=== PATIENT | female | born 1990 | race Caucasian/White ===

== ENCOUNTER 2020-03-17 06:45 | Inpatient (IN) | payer MEDICAID ==
[2020-03-17] MEDS ORDERED: Sodium Chloride 0.9% 10 ML Syringe FLUSH PRN ×2 (06:55→07:00)
[2020-03-17] MEDS ORDERED: Ondansetron 4 MG/2 ML SDV IV PRN (07:00)
[2020-03-17] MEDS ORDERED: Acetaminophen 325 MG Tab PO PRN (07:00)
[2020-03-17] MEDS ORDERED: diphenhydrAMINE 50 MG/ML SDV IVPUSH PRN (07:16)
[2020-03-17] MEDS ORDERED: Misoprostol 50 MCG (1/2 of 100 MCG) Tab VAG ONE (07:30)
[2020-03-17] MEDS ORDERED: cefTRIAXone 2 GM in Sodium Chloride 0.9% 50 ML IV SCH (08:00)
--- NOTE | 2020-03-17 08:21 | PCM.LDHP ---
L&D History of Present Illness - General Date of Service: 03/17/20 Admit Problem/Dx: Patient Status Order with Admit Dx/Problem 03/17/20 07:00 Patient Status [ADT] Routine Admission Diagnosis/Problem Admission Diagnosis/Problem Source of Information: Patient History Limitations: Reports: No Limitations - Related Data Allergies/Adverse Reactions: Allergies Allergy/AdvReac Type Severity Reaction Status Date / Time amoxicillin [Amoxicillin] Allergy Hives Verified 03/17/20 07:48 Penicillins Allergy Hives Verified 03/17/20 07:48 Sulfa (Sulfonamide Allergy Hives Verified 03/17/20 07:48 Antibiotics) Home Medications: Home Meds Calcipotriene [Dovonex 0.005% Crm] 1 applic TP BID PRN 11/27/13 [History] Clobetasol Propionate [Clobex] 1 applic TOP ASDIRECTED PRN 11/27/13 [History] Levothyroxine Sodium 150 mcg PO DAILY 06/27/16 [History] #103/Iron Fumarate/Fa [ ] 1 each PO DAILY 03/17/20 [ History] Past Medical History - Past Health History Medical/Surgical History: Denies 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: Musculoskeletal History: Reports: Fracture Endocrine/Metabolic History: Reports: Hypothyroidism Dermatologic History: Reports: Psoriasis - Infectious Disease History Infectious Disease History: Reports: Chicken Pox, MRSA - Past Surgical History Endocrine Surgical History: Reports: Thyroidectomy Social & Family History - Family History Family Medical History: Noncontributory - Tobacco Use Smoking Status *Q: Current Every Day Smoker Years of Tobacco use: 13 Packs/Tins Daily: 0.5 Used Tobacco, but Quit: No Second Hand Smoke Exposure: No - Caffeine Use Caffeine Use: Reports: Coffee - Recreational Drug Use Recreational Drug Use: No - Living Situation & Occupation Living situation: Reports: H&P Review of Systems - Review of Systems: Review Of Systems: See Below General: Reports: No Symptoms HEENT: Reports: No Symptoms Pulmonary: Reports: No Symptoms Cardiovascular: Reports: No Symptoms Gastrointestinal: Reports: No Symptoms Genitourinary: Reports: No Symptoms Musculoskeletal: Reports: No Symptoms Skin: Reports: No Symptoms Psychiatric: Reports: No Symptoms Neurological: Reports: No Symptoms Hematologic/Lymphatic: Reports: No Symptoms Immunologic: Reports: No Symptoms L&D Exam - Exam Exam: See Below - Vital Signs Weight: 75.296 kg - OB Specific Contraction Intensity: Mild Movement: Active Heart Tones: Present Heart Rate (FHR) Variability: Moderate (6-25 bmp) Presentation: Left Occiput Posterior (LOP) - Eng Score Eng Score Cervix Position: Posterior Eng Score Consistency: Soft Eng Score Effacement: 51-70% Eng Score Dilation: 1-2 cm Eng Score 's Station: -2 Eng Score Total: 6 - Exam General: Alert, Oriented, Cooperative HEENT: PERRLA, Conjunctiva Clear, EACs Clear, EOMI, Hearing Intact, Mucosa Moist & [place], Nares Patent, Normal Nasal Septum, Posterior Pharynx Clear, TMs Clear Neck: Supple, Trachea Midline Lungs: Clear to Auscultation, Normal Respiratory Effort Cardiovascular: Regular Rate, Regular Rhythm GI/Abdominal Exam: Normal Bowel Sounds, Soft, Non-Tender, No Organomegaly, No Distention, No Abnormal Bruit, No Mass, Pelvis Stable Rectal Exam: Normal Exam, Normal Rectal Tone Genitourinary: Normal external exam, Normal bimanual exam, Normal speculum exam Back Exam: Normal Inspection, Full Range of Motion Extremities: Normal Inspection, Normal Range of Motion, Non-Tender, No Pedal Edema, Normal Capillary Refill Skin: Warm, Dry, Intact Neurological: Cranial Nerves Intact, Reflexes Equal Bilateral Psychiatric: Alert, Normal Affect, Normal Mood - Patient Data Lab Results Last 24 hrs: Laboratory Results - last 24 hr 03/17/20 Range/Units 06:53 WBC 14.6 H (4.5-11.0) K/uL RBC 4.43 (3.30-5.50) M/uL Hgb 13.3 (12.0-15.0) g/dL Hct 40.6 (36.0-48.0) % MCV 92 (80-98) fL MCH 30 (27-31) pg MCHC 33 (32-36) % Plt Count 310 (150-400) K/uL Neut % (Auto) 66 (36-66) % Lymph % (Auto) 22 L (24-44) % [place] % (Auto) 10 H (2-6) % Eos % (Auto) 2 (2-4) % Baso % (Auto) 0 (0-1) % Result Diagrams: 03/17/20 06:53 - Problem List (1) SNOMED Code(s): 54056172 ICD Code: Z34.90 - ENCNTR FOR SUPRVSN OF NORMAL , UNSP, UNSP TRIMESTER Status: Acute Current Visit: Yes Qualifiers: Weeks of gestation: 39 weeks Qualified Code(s): Z3A.39 - 39 weeks gestation of (2) Nicotine dependence with current use SNOMED Code(s): 342535894 ICD Code: F17.200 - NICOTINE DEPENDENCE, UNSPECIFIED, UNCOMPLICATED Status : Acute Current Visit: Yes (3) Encounter for induction of labor SNOMED Code(s): 069732503 ICD Code: Z34.90 - ENCNTR FOR SUPRVSN OF NORMAL , UNSP, UNSP TRIMESTER Status: Acute Current Visit: Yes (4) Positive GBS test SNOMED Code(s): 003530074, 286694012 ICD Code: B95.1 - STREPTOCOCCUS, GROUP B, CAUSING DISEASES CLASSD ELSWHR Status: Acute Priority: High Current Visit: Yes (5) History of delivery, currently in third trimester SNOMED Code(s): 64313976, 48848918 ICD Code: O09.893 - SUPERVISION OF OTHER HIGH RISK PREGNANCIES, THIRD TRIMESTER Status: Acute Priority: High Current Visit: Yes Problem List Initiated/Reviewed/Updated: Yes Orders Last 24hrs: Active Orders 24 hr Category Date Time Status Patient Status [ADT] Routine ADT 03/17/20 07:00 Active Ambulate [RC] PER UNIT ROUTINE Care 03/17/20 07:00 Active Communication Order [RC] ASDIRECTED Care 03/17/20 07:00 Active Communication Order [RC] Per Unit Routine Care 03/17/20 07:00 Active Communication Order [RC] Per Unit Routine Care 03/17/20 07:00 Active Communication Order [RC] Per Unit Routine Care 03/17/20 07:00 Active Communication Order [RC] Per Unit Routine Care 03/17/20 07:00 Active Dietary Supplements [RC] BIDMEALS Care 03/17/20 07:06 Active Heart Tones [RC] PER UNIT ROUTINE Care 03/17/20 07:00 Active Non Stress Test [RC] Click to Edit Care 03/17/20 07:00 Active May Shower [RC] ASDIRECTED Care 03/17/20 07:00 Active Nitrous Oxide Delivery [RC] ASDIRECTED Care 03/17/20 07:00 Active Notify Provider Vital Signs [RC] PRN Care 03/17/20 07:00 Active Notify Provider [RC] PRN Care 03/17/20 07:00 Active Oxygen Therapy [RC] ASDIRECTED Care 03/17/20 07:00 Active Peripheral IV Care [RC] . DIRECTED Care 03/17/20 06:55 Active Pulse Oximetry [RC] ASDIRECTED Care 03/17/20 07:00 Active Up ad Chandrika [RC] ASDIRECTED Care 03/17/20 07:00 Active VTE/DVT Education [RC] Click to Edit Care 03/17/20 07:04 Active Verify Patient Consent Obtain [RC] ASDIRECTED Care 03/17/20 07:00 Active Vital Signs [RC] PER UNIT ROUTINE Care 03/17/20 07:00 Active Vital Signs [RC] PER UNIT ROUTINE Care 03/17/20 07:00 Active Regular Diet [DIET] Diet 03/17/20 Breakfast Active BPP wo NST [US] Routine Exams 03/17/20 07:00 Ordered DRUG SCREEN, URINE [URCHEM] Routine Lab 03/17/20 06:53 Ordered UA W/MICROSCOPIC [URIN] Routine Lab 03/17/20 06:53 Ordered Acetaminophen [Tylenol] Med 03/17/20 07:00 Active 650 mg PO Q4H PRN Ondansetron [Zofran] Med 03/17/20 07:00 Active 4 mg IV Q4H PRN Sodium Chloride 0.9% [Saline Flush] Med 03/17/20 06:55 Active 10 ml FLUSH ASDIRECTED PRN Sodium Chloride 0.9% [Saline Flush] Med 03/17/20 07:00 Active 10 ml FLUSH ASDIRECTED PRN cefTRIAXone [Rocephin] 2 gm Med 03/17/20 08:00 Active Sodium Chloride 0.9% [Normal Saline] 50 ml IV Q24H diphenhydrAMINE [Benadryl] Med 03/17/20 07:16 Active 50 mg IVPUSH Q4H PRN DVT/VTE Prophylaxis Reflex [OM.PC] Routine Oth 03/17/20 07:00 Ordered Medication Discontinuation Instructions [OM.PC] Routine Oth 03/17/20 07:00 Ordered Peripheral IV Insertion Adult [OM.PC] Routine Oth 03/17/20 06:55 Ordered Saline Lock Insert [OM.PC] Routine Oth 03/17/20 07:00 Ordered Resuscitation Status Routine Resus Stat 03/17/20 07:00 Ordered Medication Orders Acetaminophen (Tylenol) 650 mg PO Q4H PRN PRN Reason: Pain (Mild 1-3) and fever Diphenhydramine HCl (Benadryl) 50 mg IVPUSH Q4H PRN PRN Reason: Hives Ceftriaxone Sodium 2 gm/ (Sodium Chloride) 50 mls @ 100 mls/hr IV Q24H CORNELIA Last Admin: 03/17/20 08:04 Dose: 100 mls/hr Ondansetron HCl (Zofran) 4 mg IV Q4H PRN PRN Reason: Nausea/Vomiting Sodium Chloride (Saline Flush) 10 ml FLUSH ASDIRECTED PRN PRN Reason: Keep Vein Open Sodium Chloride (Saline Flush) 10 ml FLUSH ASDIRECTED PRN PRN Reason: Keep Vein Open Assessment/Plan Comment:: 03/17/2020 29 yo is here at 39 3/7 gestational weeks for a medical induction of labor She has a history of a at 20 gestational weeks twins whom due to prematurity, then has a GBS positive case that has minimal sensitivity to antibiotics, she is also a cigarette smoker regularly. Decision was made with patient to induce labor after 39 weeks. SVE-1/60/-2 FHTs category one BPP 8/8 Labs-O positive, Hep B neg, Hep C neg, HIV neg, RPR nonreactive, GBS positive- see report, Hgb-13.3 Cytotec placed vaginally Plan- Monitor for active labor Monitor FHTs Patient may be up ad chandrika Patient may bathe or shower Patient can eat regular diet Patient can have pain management per patient request Rocephin for GBS status Plan and anticipate a vaginal delivery
--- NOTE | 2020-03-17 12:30 | PCM.PNLD ---
Labor Progress Note - VS & Meds Vital Signs: Last Vital Signs Temp 36.6 C 03/17/20 11:00 Pulse 79 03/17/20 09:10 Resp 18 03/17/20 11:00 BP 118/85 03/17/20 11:00 Pulse Ox 97 03/17/20 09:10 Active Medications: Current Medications Acetaminophen (Tylenol) 650 mg PO Q4H PRN PRN Reason: Pain (Mild 1-3) and fever Diphenhydramine HCl (Benadryl) 50 mg IVPUSH Q4H PRN PRN Reason: Hives Ceftriaxone Sodium 2 gm/ (Sodium Chloride) 50 mls @ 100 mls/hr IV Q24H CORNELIA Last Admin: 03/17/20 08:04 Dose: 100 mls/hr Oxytocin/Sodium Chloride (Pitocin In Ns 20 Units/1,000 Ml) 20 unit in 1,000 mls @ 6 mls/hr IV TITRATE CORNELIA; Protocol Ondansetron HCl (Zofran) 4 mg IV Q4H PRN PRN Reason: Nausea/Vomiting Sodium Chloride (Saline Flush) 10 ml FLUSH ASDIRECTED PRN PRN Reason: Keep Vein Open Sodium Chloride (Saline Flush) 10 ml FLUSH ASDIRECTED PRN PRN Reason: Keep Vein Open Discontinued Medications Misoprostol (Cytotec) 50 mcg VAG ONETIME ONE Stop: 03/17/20 07:31 Last Admin: 03/17/20 08:08 Dose: 50 mcg - Uterine Contractions Uterine Monitoring Mode: External [place] Contraction Frequency (min): irreg Contraction Duration (sec): 60-80 Contraction Intensity: Mild to Moderate Uterine Resting Tone: Soft - Monitoring Monitor Mode: External Ultrasound Heart Rate (FHR) Variability: Moderate (6-25 bmp) - Vaginal Exam Dilation (cm): 1 Effacement (Percent): 60-70 Cervical Position: Midposition Sterile Vaginal Exam Performed By: Kristine Oropeza - Labor Progress (Free Text) Labor Progress: 03/17/2020 Patient occasionally having variable with one late deceleration, SVE only slight change, FHTs good variability inbetween Did discuss what a late deceleration is with patient Will continue to monitor closely Plan0 Start Pitocin per protocol Give IV bolus of fluids Monitor FHTs closely Monitor labor
[2020-03-17] MEDS ORDERED: Sodium Chloride 0.9% 1,000 ML IV ONE (12:45)
--- NOTE | 2020-03-17 19:17 | PCM.PNLD ---
Labor Progress Note - VS & Meds Vital Signs: Last Vital Signs Temp 36.4 C 03/17/20 16:00 Pulse 70 03/17/20 16:00 Resp 20 03/17/20 16:00 BP 118/82 03/17/20 16:00 Pulse Ox 96 03/17/20 16:00 Active Medications: Current Medications Acetaminophen (Tylenol) 650 mg PO Q4H PRN PRN Reason: Pain (Mild 1-3) and fever Diphenhydramine HCl (Benadryl) 50 mg IVPUSH Q4H PRN PRN Reason: Hives Ceftriaxone Sodium 2 gm/ (Sodium Chloride) 50 mls @ 100 mls/hr IV Q24H CORNELIA Last Admin: 03/17/20 08:04 Dose: 100 mls/hr Oxytocin/Sodium Chloride (Pitocin In Ns 20 Units/1,000 Ml) 20 unit in 1,000 mls @ 6 mls/hr IV TITRATE CORNELIA; Protocol Last Titration: 03/17/20 16:21 Dose: 18 mls/hr Ondansetron HCl (Zofran) 4 mg IV Q4H PRN PRN Reason: Nausea/Vomiting Sodium Chloride (Saline Flush) 10 ml FLUSH ASDIRECTED PRN PRN Reason: Keep Vein Open Sodium Chloride (Saline Flush) 10 ml FLUSH ASDIRECTED PRN PRN Reason: Keep Vein Open Discontinued Medications Sodium Chloride (Normal Saline) 1,000 mls @ 999 mls/hr IV .BOLUS ONE Stop: 03/17/20 13:45 Last Admin: 03/17/20 13:46 Dose: 999 mls/hr Misoprostol (Cytotec) 50 mcg VAG ONETIME ONE Stop: 03/17/20 07:31 Last Admin: 03/17/20 08:08 Dose: 50 mcg - Uterine Contractions Uterine Monitoring Mode: External [place] Contraction Frequency (min): 1.5-2.5 Contraction Duration (sec): 60-90 Contraction Intensity: Moderate to Strong Uterine Resting Tone: Soft - Monitoring Monitor Mode: External Ultrasound Heart Rate (FHR) Variability: Moderate (6-25 bmp) - Vaginal Exam Dilation (cm): 5-6 Effacement (Percent): 85 Station: -1 Cervical Position: Midposition Sterile Vaginal Exam Performed By: Kristine Oropeza - Labor Progress (Free Text) Labor Progress: 03/17/2020 Patient was progressing but slowly, decision made to AROM, AROM completed clear fluid Pitocin remains on and contractions are regular No more late decelerations noted Patient using nitrous for pain control Significant other supportive at bedside Plan- Continue to monitor labor Continue to monitor FHTs Continue pitocin per protocol Continue nitrous as needed for pain control Patient can be up ad nicole Patient may get in tub Plan and anticipate a vaginal delivery
[2020-03-17] MEDS ORDERED: Calcium Carbonate 500 MG Tab.Chew PO PRN (19:22)
[2020-03-17] MEDS ORDERED: Lidocaine 1% 50 ML MDV ONE (19:45)
[2020-03-17] MEDS ORDERED: Lidocaine 1% 50 ML MDV INJECT ONE (19:48)
[2020-03-17] MEDS ORDERED: Benzocaine 20% Top Spray 56 GM Bottle TOP ONE (20:20)
[2020-03-17] MEDS ORDERED: Witch Hazel Medicated Pads 100/Jar TOP ONE (20:20)
[2020-03-17] MEDS ORDERED: Acetaminophen 325 MG Tab, 50 Tab Bulk Bottle PO PRN (20:20)
[2020-03-17] MEDS ORDERED: Lanolin 100% Cream 40 GM Tube TOP ONE (20:20)
[2020-03-17] MEDS ORDERED: Ibuprofen 200 MG Tab, 24 Tab Bulk Bottle PO PRN (20:20)
[2020-03-17] MEDS ORDERED: Docusate Sodium 100 MG Cap PO PRN (20:20)
--- NOTE | 2020-03-17 20:41 | PCM.DEL ---
L & D Note - General Info Date of Service: 03/17/20 - Delivery Note Labor: Augmented by ARM, Augmented by Oxytocin Cervical Ripening Method: Misoprostil Delivery Outcome: Livebirth Delivery Method: Spontaneous Vaginal Delivery-Single Infant Delivery Mode: Spontaneous Presentation: Left Occiput Anterior (JAVED) Nuchal Cord: None Anesthesia Type: Nitrous Oxide Episiotomy Type: None Laceration: None Placenta: Intact, Spontaneous Cord: 3 Vessels Estimated Blood Loss: 250 Resuscitation Needed: No : Stimulated, Warmed Score 1 min: 8 Score 5 min: 9 Second Stage Interventions: Reports: Second Nurse Assessed Progress of Descent, Second Nurse Reviewed Contraction Pattern, Second Nurse Reviewed Heart Tones, Encouragement Given, Pushing Effectively, Pushing, McRobert's Position Delivery Comments (Free Text/Narrative):: 03/17/2020 29 yo delivered a viable female at 1957 on 03/17/2020 at 39 3/7 gestational weeks over an intact perineum. Infant was delivered and placed on prewarmed blanket on mothers abdomen. Infant was dried and stimulated and began to pink in color. Delayed cord clamping was done for approximately 90 seconds and then cord was double clamped and cut by father of . APGARS-8/ 9, weight-6lbs 3oz, length-19 inches, Placenta then came wilson and intact, cord three vessels, EBL-250ml. No lacerations noted of vagina, perineum, rectum , or cervix. now wrapped in blanket and stable in mothers arms. Stages of labor- [id number] - General Info Date of Service: 03/17/20 Functional Status: Reports: Pain Controlled - Review of Systems General: Reports: No Symptoms HEENT: Reports: No Symptoms Pulmonary: Reports: No Symptoms Cardiovascular: Reports: No Symptoms Gastrointestinal: Reports: No Symptoms Genitourinary: Reports: No Symptoms Musculoskeletal: Reports: No Symptoms Skin: Reports: No Symptoms Neurological: Reports: No Symptoms Psychiatric: Reports: No Symptoms - Patient Data Vitals - Most Recent: Last Vital Signs Temp 36.4 C 03/17/20 16:00 Pulse 70 03/17/20 16:00 Resp 20 03/17/20 16:00 BP 118/82 03/17/20 16:00 Pulse Ox 96 03/17/20 16:00 Weight - Most Recent: 75.296 kg Lab Results Last 24 Hours: Laboratory Results - last 24 hr 03/17/20 03/17/20 03/17/20 Range/Units 06:53 06:53 06:53 WBC 14.6 H (4.5-11.0) K/uL RBC 4.43 (3.30-5.50) M/uL Hgb 13.3 (12.0-15.0) g/dL Hct 40.6 (36.0-48.0) % MCV 92 (80-98) fL MCH 30 (27-31) pg MCHC 33 (32-36) % Plt Count 310 (150-400) K/uL Neut % (Auto) 66 (36-66) % Lymph % (Auto) 22 L (24-44) % [place] % (Auto) 10 H (2-6) % Eos % (Auto) 2 (2-4) % Baso % (Auto) 0 (0-1) % Urine Color Yellow (YELLOW) Urine Appearance Slightly cloudy A (CLEAR) Urine pH 7.0 (5.0-8.0) Ur Specific [place] 1.025 (1.008-1.030) Urine Protein Negative (NEGATIVE) mg/dL Urine Glucose (UA) Negative (NEGATIVE) mg/dL Urine Ketones Negative (NEGATIVE) mg/dL Urine Occult Blood Negative (NEGATIVE) Urine Nitrite Negative (NEGATIVE) Urine Bilirubin Negative (NEGATIVE) Urine Urobilinogen 0.2 (0.2-1.0) EU/dL Ur Leukocyte Esterase Negative (NEGATIVE) Urine RBC Not seen (0-5) Urine WBC 0-5 (0-5) Ur Epithelial Cells Moderate Amorphous Sediment Not seen Urine Bacteria Few Urine Mucus Few Urine Opiates Screen Negative (NEGATIVE) Ur Oxycodone Screen Negative (NEGATIVE) Urine Methadone Screen Negative (NEGATIVE) Ur Propoxyphene Screen Negative (NEGATIVE) Ur Barbiturates Screen Negative (NEGATIVE) Ur Tricyclics Screen Negative (NEGATIVE) Ur Phencyclidine Scrn Negative (NEGATIVE) Ur Amphetamine Screen Negative (NEGATIVE) U Methamphetamines Scrn Negative (NEGATIVE) Urine MDMA Screen Negative (NEGATIVE) U Benzodiazepines Scrn Negative (NEGATIVE) U Cocaine Metab Screen Negative (NEGATIVE) U Marijuana (THC) Screen Negative (NEGATIVE) Med Orders - Current: Current Medications Acetaminophen (Tylenol) 650 mg PO Q4H PRN PRN Reason: Pain (Mild 1-3) and fever Acetaminophen (Tylenol Bulk Bottle) 0 mg PO Q4H PRN PRN Reason: Pain Calcium Carbonate/Glycine (Tums) 1,000 mg PO Q2H PRN PRN Reason: Indigestion Last Admin: 03/17/20 19:32 Dose: 1,000 mg Diphenhydramine HCl (Benadryl) 50 mg IVPUSH Q4H PRN PRN Reason: Hives Docusate Sodium (Colace) 100 mg PO BID PRN PRN Reason: Constipation Ceftriaxone Sodium 2 gm/ (Sodium Chloride) 50 mls @ 100 mls/hr IV Q24H CORNELIA Last Admin: 03/17/20 08:04 Dose: 100 mls/hr Oxytocin/Sodium Chloride (Pitocin In Ns 20 Units/1,000 Ml) 20 unit in 1,000 mls @ 6 mls/hr IV TITRATE CORNELIA; Protocol Last Titration: 03/17/20 16:21 Dose: 18 mls/hr Ibuprofen (Motrin Bulk Bottle) 600 mg PO Q6H PRN PRN Reason: Pain Ondansetron HCl (Zofran) 4 mg IV Q4H PRN PRN Reason: Nausea/Vomiting Sodium Chloride (Saline Flush) 10 ml FLUSH ASDIRECTED PRN PRN Reason: Keep Vein Open Sodium Chloride (Saline Flush) 10 ml FLUSH ASDIRECTED PRN PRN Reason: Keep Vein Open Discontinued Medications Benzocaine (Dzjm-D-Enagost 20% [place]) 0 gm TOP ONETIME ONE Stop: 03/17/20 20:21 Emollient Ointment (Lansinoh Hpa) 0 gm TOP ONETIME ONE Stop: 03/17/20 20:21 Sodium Chloride (Normal Saline) 1,000 mls @ 999 mls/hr IV .BOLUS ONE Stop: 03/17/20 13:45 Last Admin: 03/17/20 13:46 Dose: 999 mls/hr Lidocaine HCl (Xylocaine 1%) Confirm Administered Dose 50 ml .ROUTE .STK-MED ONE Stop: 03/17/20 19:46 Lidocaine HCl (Xylocaine 1%) 50 ml INJECT ONETIME ONE Stop: 03/17/20 19:49 Misoprostol (Cytotec) 50 mcg VAG ONETIME ONE Stop: 03/17/20 07:31 Last Admin: 03/17/20 08:08 Dose: 50 mcg [place] (Tucks) 1 pad TOP ONETIME ONE Stop: 03/17/20 20:21 - Exam General: Alert, Oriented, Cooperative HEENT: Pupils Equal, Pupils Reactive, EOMI, Mucous Membr. Moist/[place] Neck: Supple Lungs: Clear to Auscultation, Normal Respiratory Effort Cardiovascular: Regular Rate, Regular Rhythm GI/Abdominal Exam: Normal Bowel Sounds, Soft, Non-Tender, No Organomegaly, No Distention, No Abnormal Bruit, No Mass, Pelvis Stable (Female) Exam: Normal External Exam, Normal Speculum Exam, Normal Bimanual Exam, Enlarged Uterus, Vaginal Bleeding Back Exam: Normal Inspection, Full Range of Motion Extremities: Normal Inspection, Normal Range of Motion, Non-Tender, No Pedal Edema, Normal Capillary Refill Skin: Warm, Dry, Intact Neurological: No New Focal Deficit Psy/Mental Status: Alert, Normal Affect, Normal Mood - Problem List & Annotations (1) SNOMED Code(s): 39112528 Code(s): Z34.90 - ENCNTR FOR SUPRVSN OF NORMAL , UNSP, UNSP TRIMESTER Status: Acute Current Visit: Yes Qualifiers: Weeks of gestation: 39 weeks Qualified Code(s): Z3A.39 - 39 weeks gestation of (2) Nicotine dependence with current use SNOMED Code(s): 173185802 Code(s): F17.200 - NICOTINE DEPENDENCE, UNSPECIFIED, UNCOMPLICATED Status: Acute Current Visit: Yes (3) Encounter for induction of labor SNOMED Code(s): 587623024 Code(s): Z34.90 - ENCNTR FOR SUPRVSN OF NORMAL , UNSP, UNSP TRIMESTER Status: Acute Current Visit: Yes (4) Positive GBS test SNOMED Code(s): 266332749, 115376549 Code(s): B95.1 - STREPTOCOCCUS, GROUP B, CAUSING DISEASES CLASSD [facility] Status: Acute Priority: High Current Visit: Yes (5) History of delivery, currently in third trimester SNOMED Code(s): 83315695, 85842601 Code(s): O09.893 - SUPERVISION OF OTHER HIGH RISK PREGNANCIES, THIRD TRIMESTER Status: Acute Priority: High Current Visit: Yes (6) Normal vaginal delivery SNOMED Code(s): 55142704, 416976235 Code(s): O80 - ENCOUNTER FOR FULL-TERM UNCOMPLICATED DELIVERY Status: Acute Current Visit: Yes - Problem List Review Problem List Initiated/Reviewed/Updated: Yes - My Orders Last 24 Hours: My Active Orders 03/17/20 06:55 Peripheral IV Care [RC] . DIRECTED Sodium Chloride 0.9% [Saline Flush] 10 ml FLUSH ASDIRECTED PRN Peripheral IV Insertion Adult [OM.PC] Routine 03/17/20 07:00 Patient Status [ADT] Routine Ambulate [RC] PER UNIT ROUTINE Communication Order [RC] ASDIRECTED Communication Order [RC] Per Unit Routine Communication Order [RC] Per Unit Routine Communication Order [RC] Per Unit Routine Communication Order [RC] Per Unit Routine Heart Tones [RC] PER UNIT ROUTINE May Shower [RC] ASDIRECTED Nitrous Oxide Delivery [RC] ASDIRECTED Notify Provider Vital Signs [RC] PRN Notify Provider [RC] PRN Oxygen Therapy [RC] ASDIRECTED Pulse Oximetry [RC] ASDIRECTED Up ad Nicole [RC] ASDIRECTED Verify Patient Consent Obtain [RC] ASDIRECTED Vital Signs [RC] PER UNIT ROUTINE BPP wo NST [US] Routine Acetaminophen [Tylenol] 650 mg PO Q4H PRN Ondansetron [Zofran] 4 mg IV Q4H PRN Sodium Chloride 0.9% [Saline Flush] 10 ml FLUSH ASDIRECTED PRN DVT/VTE Prophylaxis Reflex [OM.PC] Routine Medication Discontinuation Instructions [OM.PC] Routine Saline Lock Insert [OM.PC] Routine Resuscitation Status Routine 03/17/20 07:04 VTE/DVT Education [RC] Click to Edit 03/17/20 07:06 Dietary Supplements [RC] BIDMEALS 03/17/20 07:16 diphenhydrAMINE [Benadryl] 50 mg IVPUSH Q4H PRN 03/17/20 08:00 cefTRIAXone [Rocephin] 2 gm Sodium Chloride 0.9% [Normal Saline] 50 ml IV Q24H 03/17/20 12:15 Oxytocin/Normal Saline [Pitocin in NS 20 Units/1,000 ML] 20 unit in 1,000 ml IV TITRATE 03/17/20 19:22 Calcium Carbonate [Tums] 1,000 mg PO Q2H PRN 03/17/20 20:20 Patient Status [ADT] Routine Vital Signs [RC] PFP Acetaminophen [Tylenol Bulk Bottle] See Dose Instructions PO Q4H PRN Docusate Sodium [Colace] 100 mg PO BID PRN Ibuprofen [Motrin Bulk Bottle] 600 mg PO Q6H PRN Assess Lochia [WOMSER] Per Unit Routine Assess Uterine Involution [WOMSER] Per Unit Routine 03/17/20 20:23 Ice Therapy [OM.PC] Per Unit Routine Perineal Care [OM.PC] Per Unit Routine Sitz Bath [OM.PC] Per Unit Routine 03/17/20 Breakfast Regular Diet [DIET] 03/18/20 06:00 CBC WITH AUTO DIFF [HEME] Routine - Assessment Assessment:: 03/17/2020 29 yo delivered at 39 3/7 without complications GBS positive-treated Smoker - Plan Plan:: 03/17/2020 29 yo is here at 39 3/7 gestational weeks for a medical induction of labor She has a history of a at 20 gestational weeks twins whom due to prematurity, then has a GBS positive case that has minimal sensitivity to antibiotics, she is also a cigarette smoker regularly. Decision was made with patient to induce labor after 39 weeks. SVE-/-2 FHTs category one BPP 06/05 Labs-O positive, Hep B neg, Hep C neg, HIV neg, RPR nonreactive, GBS positive- see report, Hgb-13.3 Cytotec placed vaginally Plan- Monitor for active labor Monitor FHTs Patient may be up ad nicole Patient may bathe or shower Patient can eat regular diet Patient can have pain management per patient request Rocephin for GBS status Plan and anticipate a vaginal delivery 03/17/2020 Routine cares CBC in am
--- NOTE | 2020-03-17 21:57 | CRLUS ---
INDICATION: Induction, BPP TECHNIQUE: Ultrasound OB pelvis transabdominal. Grayscale and color Doppler imaging was performed of the fetus. COMPARISON: None FINDINGS: Sonographic imaging demonstrates a single living intrauterine gestation. Fetus demonstrates a regular cardiac rate of 144 beats per minute. Fetus has a cephalic orientation. The placenta lies anterior. Amniotic fluid volume appears normal with a single deepest pocket measuring 8.5 cm (JULIET 18.8 cm). breathing movements: 2/2 Gross body movements: 2/2 tone: 2/2 Amniotic Fluid: 2/2 Total: 06/05 IMPRESSION: Single live intrauterine with a biophysical profile 06/05. Dictated by Anne-Marie Gardner MD @ 03/17/2020 9:55:46 PM Dictated by: Anne-Marie Gardner MD @ 03/17/2020 21:56:03 (Electronically Signed)
--- NOTE | 2020-03-18 08:42 | PCM.PNPP ---
- General Info Date of Service: 03/18/20 Functional Status: Reports: Pain Controlled - Review of Systems General: Reports: No Symptoms HEENT: Reports: No Symptoms Pulmonary: Reports: No Symptoms Cardiovascular: Reports: No Symptoms Gastrointestinal: Reports: No Symptoms Genitourinary: Reports: No Symptoms Musculoskeletal: Reports: No Symptoms Skin: Reports: No Symptoms Neurological: Reports: No Symptoms Psychiatric: Reports: No Symptoms - General Info Date of Service: 03/18/20 - Patient Data Vital Signs - Most Recent: Last Vital Signs Temp 36.2 C 03/18/20 07:59 Pulse 82 03/18/20 07:59 Resp 20 03/18/20 07:59 BP 111/71 03/18/20 07:59 Pulse Ox 98 03/18/20 07:59 Weight - Most Recent: 75.296 kg I&O - Last 24 Hours: Intake & Output 03/17/20 03/18/20 03/18/20 22:59 06:59 14:59 Intake Total 2097 Balance 2097 Lab Results - Last 24 Hours: Laboratory Results - last 24 hr 03/18/20 Range/Units 06:07 WBC 20.8 H (4.5-11.0) K/uL RBC 4.16 (3.30-5.50) M/uL Hgb 12.4 (12.0-15.0) g/dL Hct 38.3 (36.0-48.0) % MCV 92 (80-98) fL MCH 30 (27-31) pg MCHC 32 (32-36) % Plt Count 272 (150-400) K/uL Neut % (Auto) 68 H (36-66) % Lymph % (Auto) 23 L (24-44) % [place] % (Auto) 8 H (2-6) % Eos % (Auto) 1 L (2-4) % Baso % (Auto) 0 (0-1) % Med Orders - Current: Current Medications Acetaminophen (Tylenol Bulk Bottle) 0 mg PO Q4H PRN PRN Reason: Pain Last Admin: 03/17/20 21:59 Dose: 325 mg Calcium Carbonate/Glycine (Tums) 1,000 mg PO Q2H PRN PRN Reason: Indigestion Last Admin: 03/17/20 19:32 Dose: 1,000 mg Diphenhydramine HCl (Benadryl) 50 mg IVPUSH Q4H PRN PRN Reason: Hives Docusate Sodium (Colace) 100 mg PO BID PRN PRN Reason: Constipation Fluconazole (Diflucan) 150 mg PO DAILY [facility] Stop: 03/25/20 09:00 Oxytocin/Sodium Chloride (Pitocin In Ns 20 Units/1,000 Ml) 20 unit in 1,000 mls @ 6 mls/hr IV TITRATE [facility]; Protocol Last Titration: 03/17/20 16:21 Dose: 18 mls/hr Ceftriaxone Sodium 2 gm/ (Sodium Chloride) 50 mls @ 100 mls/hr IV Q24H [place] Stop: 03/20/20 08:00 Ibuprofen (Motrin Bulk Bottle) 600 mg PO Q6H PRN PRN Reason: Pain Last Admin: 03/17/20 21:59 Dose: 600 mg Ondansetron HCl (Zofran) 4 mg IV Q4H PRN PRN Reason: Nausea/Vomiting Sodium Chloride (Saline Flush) 10 ml FLUSH ASDIRECTED PRN PRN Reason: Keep Vein Open Discontinued Medications Acetaminophen (Tylenol) 650 mg PO Q4H PRN PRN Reason: Pain (Mild 1-3) and fever Benzocaine (Pjhg-S-Lecgjiv 20% [place]) 0 gm TOP ONETIME ONE Stop: 03/17/20 20:21 Last Admin: 03/17/20 21:44 Dose: 1 applic Emollient Ointment (Lansinoh Hpa) 0 gm TOP ONETIME ONE Stop: 03/17/20 20:21 Last Admin: 03/17/20 21:43 Dose: 1 applic Ceftriaxone Sodium 2 gm/ (Sodium Chloride) 50 mls @ 100 mls/hr IV Q24H [facility] Last Admin: 03/17/20 08:04 Dose: 100 mls/hr Sodium Chloride (Normal Saline) 1,000 mls @ 999 mls/hr IV .BOLUS ONE Stop: 03/17/20 13:45 Last Admin: 03/17/20 13:46 Dose: 999 mls/hr Lidocaine HCl (Xylocaine 1%) Confirm Administered Dose 50 ml .ROUTE .STK-MED ONE Stop: 03/17/20 19:46 Last Admin: 03/17/20 22:13 Dose: Not Given Lidocaine HCl (Xylocaine 1%) 50 ml INJECT ONETIME ONE Stop: 03/17/20 19:49 Last Admin: 03/17/20 22:13 Dose: Not Given Misoprostol (Cytotec) 50 mcg VAG ONETIME ONE Stop: 03/17/20 07:31 Last Admin: 03/17/20 08:08 Dose: 50 mcg Sodium Chloride (Saline Flush) 10 ml FLUSH ASDIRECTED PRN PRN Reason: Keep Vein Open [place] Cisneros (Tucks) 1 pad TOP ONETIME ONE Stop: 03/17/20 20:21 Last Admin: 03/17/20 21:43 Dose: 1 applic - Infant Interaction Disposition, : [place] in Room with Family Infant Interaction: Holding Infant Feeding: Bottle Fed (pumping) Support Person: Significant Other - Recovery Exam Fundal Tone: Firm Fundal Level: 2 Fingerbreadths Below Umbilicus Lochia Amount: Small Lochia Color: Rubra/Red Perineum Description: Intact, Minimal Bruising/Swelling Episiotomy/Laceration: None Bladder Status: Voiding Urinary Elimination: Voided - Exam General: Alert, Oriented HEENT: Pupils Equal Neck: Supple Lungs: Clear to Auscultation, Normal Respiratory Effort Cardiovascular: Regular Rate, Regular Rhythm GI/Abdominal Exam: Normal Bowel Sounds, Soft, Non-Tender, No Organomegaly, No Distention, No Abnormal Bruit, No Mass, Pelvis Stable Extremities: Normal Inspection, Normal Range of Motion, Non-Tender, No Pedal Edema, Normal Capillary Refill Skin: Warm, Dry, Intact Neurological: No New Focal Deficit Psy/Mental Status: Alert, Normal Affect, Normal Mood - Problem List & Annotations (1) SNOMED Code(s): 20224328 Code(s): Z34.90 - ENCNTR FOR SUPRVSN OF NORMAL , UNSP, UNSP TRIMESTER Status: Acute Current Visit: Yes Qualifiers: Weeks of gestation: 39 weeks Qualified Code(s): Z3A.39 - 39 weeks gestation of (2) Nicotine dependence with current use SNOMED Code(s): 439028119 Code(s): F17.200 - NICOTINE DEPENDENCE, UNSPECIFIED, UNCOMPLICATED Status: Acute Current Visit: Yes (3) Encounter for induction of labor SNOMED Code(s): 442472087 Code(s): Z34.90 - ENCNTR FOR SUPRVSN OF NORMAL , UNSP, UNSP TRIMESTER Status: Acute Current Visit: Yes (4) Positive GBS test SNOMED Code(s): 794035356, 117886026 Code(s): B95.1 - STREPTOCOCCUS, GROUP B, CAUSING DISEASES CLASSD ELSWHR Status: Acute Priority: High Current Visit: Yes (5) History of delivery, currently in third trimester SNOMED Code(s): 28831570, 92797952 Code(s): O09.893 - SUPERVISION OF OTHER HIGH RISK PREGNANCIES, THIRD TRIMESTER Status: Acute Priority: High Current Visit: Yes (6) Normal vaginal delivery SNOMED Code(s): 51016341, 591668814 Code(s): O80 - ENCOUNTER FOR FULL-TERM UNCOMPLICATED DELIVERY Status: Acute Current Visit: Yes (7) Elevated WBC count SNOMED Code(s): 981180680, 691131963 Code(s): D72.829 - ELEVATED WHITE BLOOD CELL COUNT, UNSPECIFIED Status: Acute Current Visit: Yes (8) History of endometritis SNOMED Code(s): 522767276 Code(s): Z87.42 - PERSONAL HISTORY OF OTH DISEASES OF THE FEMALE GENITAL TRACT Status: Acute Current Visit: Yes - Problem List Review Problem List Initiated/Reviewed/Updated: Yes - My Orders Last 24 Hours: My Active Orders 03/17/20 12:15 Oxytocin/Normal Saline [Pitocin in NS 20 Units/1,000 ML] 20 unit in 1,000 ml IV TITRATE 03/17/20 19:22 Calcium Carbonate [Tums] 1,000 mg PO Q2H PRN 03/17/20 20:20 Patient Status [ADT] Routine Acetaminophen [Tylenol Bulk Bottle] See Dose Instructions PO Q4H PRN Docusate Sodium [Colace] 100 mg PO BID PRN Ibuprofen [Motrin Bulk Bottle] 600 mg PO Q6H PRN Assess Lochia [WOMSER] Per Unit Routine Assess Uterine Involution [WOMSER] Per Unit Routine 03/17/20 20:23 Ice Therapy [OM.PC] Per Unit Routine Perineal Care [OM.PC] Per Unit Routine Sitz Bath [OM.PC] Per Unit Routine 03/17/20 Breakfast Regular Diet [DIET] 03/18/20 08:45 cefTRIAXone [Rocephin] 2 gm Sodium Chloride 0.9% [Normal Saline] 50 ml IV Q24H 05/21/20 09:00 Fluconazole [Diflucan] 150 mg PO DAILY - Assessment Assessment:: 03/17/2020 29 yo delivered at 39 3/7 without complications GBS positive-treated Smoker 03/18/2020 day one without complications Fundus firm and bleeding decreasing Passing gas and voiding WBC count up to 20.8 due to history will treat GBS positive was treated based on C&S - Plan Plan:: 03/17/2020 29 yo is here at 39 3/7 gestational weeks for a medical induction of labor She has a history of a at 20 gestational weeks twins whom due to prematurity, then has a GBS positive case that has minimal sensitivity to antibiotics, she is also a cigarette smoker regularly. Decision was made with patient to induce labor after 39 weeks. SVE-/-2 FHTs category one BPP 8/ Labs-O positive, Hep B neg, Hep C neg, HIV neg, RPR nonreactive, GBS positive- see report, Hgb-13.3 Cytotec placed vaginally Plan- Monitor for active labor Monitor FHTs Patient may be up ad nicole Patient may bathe or shower Patient can eat regular diet Patient can have pain management per patient request Rocephin for GBS status Plan and anticipate a vaginal delivery 03/17/2020 Routine cares CBC in am 03/18/2020 Continue routine cares CBC in am IV Rocephin to be given see orders Will plan discharge tomorrow if WBC count comes down Diflucan for yeast
[2020-03-18] MEDS: cefTRIAXone 2 GM in Sodium Chloride 0.9% 50 ML IV SCH (09:10)
[2020-03-18] MEDS: Fluconazole 150 MG Tab PO SCH (09:11)
[2020-03-18] MEDS: Magnesium Hydroxide 400 MG/5 ML Susp 30 ML Cup PO PRN (21:06)
[2020-03-19] MEDS: Magnesium Hydroxide 400 MG/5 ML Susp 30 ML Cup PO PRN (01:27)
[2020-03-19 07:49] VITALS: BP 123/78; PULSE 75
--- NOTE | 2020-03-19 08:18 | PCM.PNPP ---
- General Info Date of Service: 03/19/20 Functional Status: Reports: Pain Controlled - Review of Systems General: Reports: No Symptoms HEENT: Reports: No Symptoms Pulmonary: Reports: No Symptoms Cardiovascular: Reports: No Symptoms Gastrointestinal: Reports: No Symptoms Genitourinary: Reports: No Symptoms Musculoskeletal: Reports: No Symptoms Skin: Reports: No Symptoms Neurological: Reports: No Symptoms Psychiatric: Reports: No Symptoms - General Info Date of Service: 03/19/20 - Patient Data Vital Signs - Most Recent: Last Vital Signs Temp 36.8 C 03/19/20 07:47 Pulse 75 03/19/20 07:47 Resp 18 03/19/20 07:47 BP 123/78 03/19/20 07:47 Pulse Ox 99 03/19/20 07:47 Weight - Most Recent: 75.296 kg I&O - Last 24 Hours: Intake & Output 03/18/20 03/19/20 03/19/20 22:59 06:59 14:59 Intake Total 480 360 Balance 480 360 Lab Results - Last 24 Hours: Laboratory Results - last 24 hr 03/19/20 Range/Units 05:44 WBC 13.9 H (4.5-11.0) K/uL RBC 3.90 (3.30-5.50) M/uL Hgb 11.9 L (12.0-15.0) g/dL Hct 36.3 (36.0-48.0) % MCV 93 (80-98) fL MCH 31 (27-31) pg MCHC 33 (32-36) % Plt Count 259 (150-400) K/uL Neut % (Auto) 58 (36-66) % Lymph % (Auto) 30 (24-44) % [place] % (Auto) 10 H (2-6) % Eos % (Auto) 2 (2-4) % Baso % (Auto) 1 (0-1) % Med Orders - Current: Current Medications Acetaminophen (Tylenol Bulk Bottle) 0 mg PO Q4H PRN PRN Reason: Pain Last Admin: 03/17/20 21:59 Dose: 325 mg Calcium Carbonate/Glycine (Tums) 1,000 mg PO Q2H PRN PRN Reason: Indigestion Last Admin: 03/17/20 19:32 Dose: 1,000 mg Diphenhydramine HCl (Benadryl) 50 mg IVPUSH Q4H PRN PRN Reason: Hives Docusate Sodium (Colace) 100 mg PO BID PRN PRN Reason: Constipation Last Admin: 03/18/20 14:45 Dose: 100 mg Fluconazole (Diflucan) 150 mg PO DAILY [facility] Stop: 03/25/20 09:01 Last Admin: 03/18/20 09:11 Dose: 150 mg Oxytocin/Sodium Chloride (Pitocin In Ns 20 Units/1,000 Ml) 20 unit in 1,000 mls @ 6 mls/hr IV TITRATE CORNELIA; Protocol Last Titration: 03/17/20 16:21 Dose: 18 mls/hr Ceftriaxone Sodium 2 gm/ (Sodium Chloride) 50 mls @ 100 mls/hr IV Q24H [place] Stop: 03/20/20 08:00 Last Admin: 03/18/20 09:10 Dose: 100 mls/hr Ibuprofen (Motrin Bulk Bottle) 600 mg PO Q6H PRN PRN Reason: Pain Last Admin: 03/17/20 21:59 Dose: 600 mg Magnesium Hydroxide (Milk Of Magnesia) 30 ml PO Q6H PRN PRN Reason: Constipation Last Admin: 03/19/20 01:27 Dose: 30 ml Ondansetron HCl (Zofran) 4 mg IV Q4H PRN PRN Reason: Nausea/Vomiting Sodium Chloride (Saline Flush) 10 ml FLUSH ASDIRECTED PRN PRN Reason: Keep Vein Open Discontinued Medications Acetaminophen (Tylenol) 650 mg PO Q4H PRN PRN Reason: Pain (Mild 1-3) and fever Benzocaine (Hvkl-P-Jkrerwl 20% [place]) 0 gm TOP ONETIME ONE Stop: 03/17/20 20:21 Last Admin: 03/17/20 21:44 Dose: 1 applic Emollient Ointment (Lansinoh Hpa) 0 gm TOP ONETIME ONE Stop: 03/17/20 20:21 Last Admin: 03/17/20 21:43 Dose: 1 applic Ceftriaxone Sodium 2 gm/ (Sodium Chloride) 50 mls @ 100 mls/hr IV Q24H [facility] Last Admin: 03/17/20 08:04 Dose: 100 mls/hr Sodium Chloride (Normal Saline) 1,000 mls @ 999 mls/hr IV .BOLUS ONE Stop: 03/17/20 13:45 Last Admin: 03/17/20 13:46 Dose: 999 mls/hr Lidocaine HCl (Xylocaine 1%) Confirm Administered Dose 50 ml .ROUTE .STK-MED ONE Stop: 03/17/20 19:46 Last Admin: 03/17/20 22:13 Dose: Not Given Lidocaine HCl (Xylocaine 1%) 50 ml INJECT ONETIME ONE Stop: 03/17/20 19:49 Last Admin: 03/17/20 22:13 Dose: Not Given Misoprostol (Cytotec) 50 mcg VAG ONETIME ONE Stop: 03/17/20 07:31 Last Admin: 03/17/20 08:08 Dose: 50 mcg Sodium Chloride (Saline Flush) 10 ml FLUSH ASDIRECTED PRN PRN Reason: Keep Vein Open Witch Amelia (Tucks) 1 pad TOP ONETIME ONE Stop: 03/17/20 20:21 Last Admin: 03/17/20 21:43 Dose: 1 applic - Interaction Disposition, : [place] in Room with Family Interaction: Holding Infant Infant Feeding: Bottle Fed (pumping) Support Person: Significant Other - Recovery Exam Fundal Tone: Firm Fundal Level: 3 Fingerbreadths Below Umbilicus Fundal Placement: Midline Lochia Amount: Moderate Lochia Color: Rubra/Red Perineum Description: Intact, Minimal Bruising/Swelling Episiotomy/Laceration: None Bladder Status: Nonpalpable Urinary Elimination: Voided - Exam General: Alert, Oriented HEENT: Pupils Equal, Pupils Reactive, Mucous Membr. Moist/[place] Neck: Supple Lungs: Clear to Auscultation, Normal Respiratory Effort Cardiovascular: Regular Rate, Regular Rhythm GI/Abdominal Exam: Normal Bowel Sounds, Soft, Non-Tender, No Distention, Pelvis Stable Extremities: Normal Inspection, Normal Range of Motion, Non-Tender, No Pedal Edema, Normal Capillary Refill Skin: Warm, Dry, Intact Wound/Incisions: Healing Well Neurological: No New Focal Deficit Psy/Mental Status: Alert, Normal Affect, Normal Mood - Problem List & Annotations (1) Elevated WBC count SNOMED Code(s): 759937775, 026655470 Code(s): D72.829 - ELEVATED WHITE BLOOD CELL COUNT, UNSPECIFIED Status: Acute Current Visit: Yes (2) Encounter for induction of labor SNOMED Code(s): 746701134 Code(s): Z34.90 - ENCNTR FOR SUPRVSN OF NORMAL , UNSP, UNSP TRIMESTER Status: Acute Current Visit: Yes (3) History of endometritis SNOMED Code(s): 112152018 Code(s): Z87.42 - PERSONAL HISTORY OF OTH DISEASES OF THE FEMALE GENITAL TRACT Status: Acute Current Visit: Yes (4) History of delivery, currently in third trimester SNOMED Code(s): 90175755, 98367562 Code(s): O09.893 - SUPERVISION OF OTHER HIGH RISK PREGNANCIES, THIRD TRIMESTER Status: Acute Priority: High Current Visit: Yes (5) Nicotine dependence with current use SNOMED Code(s): 665112295 Code(s): F17.200 - NICOTINE DEPENDENCE, UNSPECIFIED, UNCOMPLICATED Status: Acute Current Visit: Yes (6) Normal vaginal delivery SNOMED Code(s): 12734778, 229156537 Code(s): O80 - ENCOUNTER FOR FULL-TERM UNCOMPLICATED DELIVERY Status: Acute Current Visit: Yes (7) Positive GBS test SNOMED Code(s): 585982167, 452898184 Code(s): B95.1 - STREPTOCOCCUS, GROUP B, CAUSING DISEASES CLASSD ELSWHR Status: Acute Priority: High Current Visit: Yes (8) SNOMED Code(s): 99653860 Code(s): Z34.90 - ENCNTR FOR SUPRVSN OF NORMAL , UNSP, UNSP TRIMESTER Status: Acute Current Visit: Yes Qualifiers: Weeks of gestation: 39 weeks Qualified Code(s): Z3A.39 - 39 weeks gestation of - Problem List Review Problem List Initiated/Reviewed/Updated: Yes - Assessment Assessment:: 03/17/2020 29 yo delivered at 39 3/7 without complications GBS positive-treated Smoker 03/18/2020 day one without complications Fundus firm and bleeding decreasing Passing gas and voiding WBC count up to 20.8 due to history will treat GBS positive was treated based on C&S 03/19/20 PP day 2 no complications FF bleeding light AVSS Hgb 11.9 WBC count down to 13.9, no s/s of infection - Plan Plan:: 03/17/2020 29 yo is here at 39 3/7 gestational weeks for a medical induction of labor She has a history of a at 20 gestational weeks twins whom due to prematurity, then has a GBS positive case that has minimal sensitivity to antibiotics, she is also a cigarette smoker regularly. Decision was made with patient to induce labor after 39 weeks. SVE-/-2 FHTs category one BPP 06/05 Labs-O positive, Hep B neg, Hep C neg, HIV neg, RPR nonreactive, GBS positive- see report, Hgb-13.3 Cytotec placed vaginally Plan- Monitor for active labor Monitor FHTs Patient may be up ad nicole Patient may bathe or shower Patient can eat regular diet Patient can have pain management per patient request Rocephin for GBS status Plan and anticipate a vaginal delivery 03/17/2020 Routine cares CBC in am 03/18/2020 Continue routine cares CBC in am IV Rocephin to be given see orders Will plan discharge tomorrow if WBC count comes down Diflucan for yeast 03/19/20 One more IV dose of Rocephin prior to discharge Warning s/s discussed with mother including fever, pain, SOB, chest pain, calf pain Plan to discharge home today with infant Has electric breast pump for home 6 week PP check
[2020-03-19] MEDS: cefTRIAXone 2 GM in Sodium Chloride 0.9% 50 ML IV SCH (08:51)
[2020-03-19] MEDS: Fluconazole 150 MG Tab PO SCH (08:58)
== END 2020-03-19 10:30 | disposition home or self-care (01) | DRG 807 ==
LOC: JP.OB 06:45 → OBSVTOIN 19:58 → JP.MS 20:48
PROVIDERS: ADMIT Advanced Practice Midwife; ATTEND Advanced Practice Midwife
PROC: 10E0XZZ Delivery of Products of Conception, External Approach (ICD-10-PCS; principal; 2020-03-17)
PROC: 3E0P7VZ Introduction of Hormone into Female Reproductive, Via Natural or Artificial Opening (ICD-10-PCS; 2020-03-17)
PROC: 10907ZC Drainage of Amniotic Fluid, Therapeutic from Products of Conception, Via Natural or Artificial Opening (ICD-10-PCS; 2020-03-17)
DX: O99.284 Endocrine, nutritional and metabolic diseases complicating childbirth (principal); Z37.0 Single live birth; E03.9 Hypothyroidism, unspecified; O99.824 Streptococcus B carrier state complicating childbirth; O99.334 Smoking (tobacco) complicating childbirth; F17.210 Nicotine dependence, cigarettes, uncomplicated; Z3A.39 39 weeks gestation of pregnancy
CPT/HCPCS: 36415; 59409; 76819; 80305-QW; 81001; 85025; A9270-GY; J0696; J2590; J7030; J7050